=== PATIENT | male | born 1950 | race Caucasian/White ===

== ENCOUNTER 2021-08-01 09:10 | Emergency (ER) | payer MEDICARE, SELFPAY ==
[2021-08-01] VITALS (57 sets, daily range): BP systolic 126–242; BP diastolic 51–197; PULSE 73–124; RESP 14–32; TEMP 36.6; O2SAT 93–100
--- NOTE | ~2021-08-01 | CT_ITS ---
EXAMINATION: CT cervical spine wo con DATE: 08/01/2021 09:48 INDICATION: Fall. TECHNIQUE: Computed tomography (CT) of the cervical spine was performed without intravenous contrast. Automated exposure control and iterative reconstruction technique were employed. Exam dose: 230.65 mGy-cm total exam DLP. COMPARISON: None FINDINGS: There is reversal of cervical curvature which may be due to muscle spasm. C1 and C2 are normally aligned and the odontoid process is intact. No fracture or dislocation or lock ed facet or prevertebral soft tissue swelling. There is degenerative disc disease throughout the cervical spine, most severe at C5-6 and C6-7. Minimal anterolisthesis at C7-T1. Degenerative changes of uncovertebral and apophyseal joints throughout the cervical spine. Emphysematous changes are noted in the upper lung zones. IMPRESSION: Reversal of cervical curvature, which may be due to muscle spasm No cervical spine fracture or dislocation or locked facet Extensive cervical spondylosis Reviewed, dictated and finalized at [facility]. Reviewed, dictated and finalized at [facility].
--- NOTE | ~2021-08-01 | CT_ITS ---
EXAMINATION: CTA brain carotid DATE: 08/01/2021 11:59 INDICATION: Acute confusion. TECHNIQUE: Computed tomography (CT) of the head was performed with 100 CC Omnipaque 300 intravenous c ontrast. The mA was adjusted according to patient size. Iterative reconstruction technique was employ ed. Exam dose: 1065.20 mGy-cm total exam DLP. COMPARISON: 08/01/2021 CT brain FINDINGS: There is atherosclerotic calcification of the thoracic aorta. There is atherosclerotic calcification of the carotid bulbs and proximal internal carotid arteries. N o evidence of dissection or occlusion of the internal carotid arteries. There is atherosclerotic calc ification of the carotid siphons. No cerebral aneurysm or occlusion is evident. Vertebrobasilar arter ies are intact. No cervical mass lesion or lymphadenopathy. Moderate emphysematous changes of the lungs. IMPRESSION: No evidence of occlusion, aneurysm or dissection of the cervical or intracranial carotid or vertebrobasilar arteries There is calcified plaque at the carotid bulbs and proximal internal carotid arteries and carotid sip hon internal carotid arteries bilaterally. Consider carotid duplex examination for assessment of degree of stenosis at the carotid bulbs and int ernal carotid arteries Reviewed, dictated and finalized at [facility]. Reviewed, dictated and finalized at [facility]. IMPRESSION: No evidence of occlusion, aneurysm or dissection of the cervical o r intracranial carotid or vertebrobasilar arteries There is calcified plaque at the carotid bulbs and proximal internal carotid ar teries and carotid siphon internal carotid arteries bilaterally. Consider carotid duplex examination for assessment of degree of stenosis at the carotid bulbs and internal carotid arteries
--- NOTE | ~2021-08-01 | CT_ITS ---
EXAMINATION: CT brain wo con DATE: 08/01/2021 09:48 INDICATION: Altered mental status. Fall. TECHNIQUE: Computed tomography (CT) of the head was performed without intravenous contrast. The mA wa s adjusted according to patient size. Iterative reconstruction technique was employed. Exam dose: 68 1.00 mGy-cm total exam DLP. COMPARISON: None FINDINGS: Prominent bilateral carotid siphon internal carotid artery calcifications, left vertebral a rtery calcification. There is nonspecific diminished attenuation of the cerebral white matter, likely due to chronic small vessel ischemic changes. Age consistent moderate cerebral volume loss. No intracranial mass lesion or hemorrhage or recent cerebrovascular accident is detected. No midline shift or mass effect. No subdural or epidural hematoma. No orbital mass lesion. Paranasal sinuses and mastoid air cells included in the examination are unrem arkable. No fracture or bone destruction of the cranial vault. IMPRESSION: Cerebral atherosclerosis and chronic small vessel ischemic changes of the cerebral white matter No acute intracranial finding Dr. Marino telephoned the report to 08/01/2021 at 0952 hours to emergency room physician Dr. Sexton. Reviewed, dictated and finalized at [facility]. Reviewed, dictated and finalized at [facility]. IMPRESSION: Cerebral atherosclerosis and chronic small vessel ischemic changes of the cerebral white matter No acute intracranial finding Dr. Marino telephoned the report to 08/01/2021 at 0952 hours to emergency room laron Sexton.
--- NOTE | 2021-08-01 09:30 | ECG_ITS ---
Measurements Intervals [place] Rate: 82 P: 87 VT: 185 QRS: -71 QRSD: 131 T: 88 QT: 381 QTc: 446 Interpretive Statements SINUS RHYTHM WITH OCCASIONAL VENTRICULAR PREMATURE COMPLEXES WANDERING BASELINE ARTIFACT LEADS V5 AND V6 LEFT ATRIAL ENLARGEMENT INTRAVENTRICULAR CONDUCTION DELAY [130+ ms QRS DURATION] LEFT VENTRICULAR HYPERTROPHY AND ST-T CHANGE [VOLTAGE CRITERIA PLUS ST/T ABNORMALITY] ANTEROSEPTAL MYOCARDIAL INFARCTION, OF INDETERMINATE AGE ABNORMAL ECG NO PREVIOUS ECG AVAILABLE FOR COMPARISON Electronically Signed On 08-02-2021 9:12:41 CDT by Naveen Garcia M.D.
--- NOTE | 2021-08-01 09:32 | ED.AMS ---
HPI - Altered Mental Status General Chief Complaint: Altered Mental Status <Amrit Sexton MD - Last Filed: 08/01/21 19:06> Stated Complaint: altered mental status <Amrit Sexton MD - Last Filed: 08/01/21 19:06> Time Seen by Provider: 08/01/21 09:13 <Amrit Sexton MD - Last Filed: 08/01/21 19:06> History of Present Illness HPI narrative: 76-year-old male presenting to the emergency department for evaluation after having an episode of altered mental status. Patient was weight when getting to the golf course and other patients felt that the patient was confused. Patient did have a fall with no reported loss of consciousness. EMS arrived to the scene patient was initially confused and noncooperative. No focal neurologic abnormality noted by EMS. Patient's last seen normal was 8 PM last night. <Amrit Sexton MD - Last Filed: 08/01/21 19:06> Related Data Home Medications: Home Medications Medication Instructions Recorded Confirmed aspirin 81 mg capsule 81 mg PO DAILY 08/01/21 08/01/21 atorvastatin 40 mg tablet 40 mg PO HS 08/01/21 08/01/21 glimepiride 4 mg tablet 4 mg PO DAILY 08/01/21 08/01/21 insulin glargine 100 unit/mL 18 unit subcut 08/01/21 subcutaneous cartridge lisinopril 10 mg tablet 20 mg PO DAILY 08/01/21 08/01/21 mometasone-formoterol HFA 200 2 puff inhalation Q12H 08/01/21 08/01/21 mcg-5 mcg/actuation aerosol inhaler (Dulera) <Amrit Sexton MD - Last Filed: 08/01/21 19:06> Allergies/Adverse Reactions: Allergies Allergy/AdvReac Type Severity Reaction Status Date / Time No Known Allergies Allergy Verified 08/01/21 10:11 <Amrit Sexton MD - Last Filed: 08/01/21 19:06> Review of Systems Review of Systems: CONSTITUTIONAL: Denies fever, chills, or sweats. EYES: Denies visual changes, redness, or discharge. ENT: Denies rhinorrhea, congestion, sore throat, or otalgia. CARDIOVASCULAR: Denies chest pain, palpitations, or edema. RESPIRATORY: Denies cough or dyspnea. GASTROINTESTINAL: Denies abdominal pain, nausea, vomiting, or diarrhea. GENITOURINARY: Denies dysuria or hematuria. SKIN: Denies rash or itching. MUSCULOSKELETAL: Denies back pain, joint pain, or myalgia. NEUROLOGIC: Denies headache, numbness, or weakness. PSYCHIATRIC: Altered mental status <Amrit Sexton MD - Last Filed: 08/01/21 19:06> ROS unobtainable: Yes unobtainable due to medical condition <Amrit Sexton MD - Last Filed: 08/01/21 19:06> Exam Narrative: APPEARANCE: Confused HEAD: normocephalic, atraumatic. EYES: PERRLA/EOMI, conjunctivae clear. NOSE: Normal no drainage EARS:TMS clear with good light reflex. THROAT: Pharynx clear, no exudate. NECK: Supple. No adenopathy, no masses. RESPIRATORY: Airway patent, respirations nonlabored. Clear to auscultation bilaterally, no rales, rhonchi, wheezing. CARDIOVASCULAR: Regular rate and rhythm without murmurs rubs or gallops. ABDOMINAL: Soft, nontender, nondistended, normal bowel sounds MUSCULOSKELETAL: Moves all extremities. Strength/ROM intact, No edema, No calf tenderness. NEURO: Alert. Cranial nerves II through XII intact. Good gait. Good coordination. Dysphasia. SKIN: Warm, dry. Normal Color <Amrit Sexton MD - Last Filed: 08/01/21 19:06> Course Course Emergency Course: Patient's last seen normal was 8 PM last night. Case discussed with [facility]y at [facility]. Patient was accepted for transfer but bed is not available. Did recommend further neuro and cardiac work-up. Patient was given his lisinopril along with a dose of metoprolol to help with his blood pressure. This did help significantly. Patient also received aspirin. Patient did have urinary retention and a Fowler catheter was placed. <Amrit Sexton MD - Last Filed: 08/01/21 19:06> Reevaluation(s) Reevaluation #1: Patient continues to have word finding difficulty. Bed is still pending at [facility] <Amrit Sexton MD - Last Filed: 08/01/21 19:0
--- NOTE | 2021-08-01 09:33 | PC.NURSE ---
Patient taken to CT with handbook writer and STEPH Noe for head CT.
--- NOTE | 2021-08-01 09:33 | PC.NURSE ---
71yr, M presented to the ED via EMS from [place] [facility]. Per EMS patient was late to golf, which is unusual for the patient. Bystanders at the [employer] [facility] reported patient wasn't making sense and someone called 911. Patient reported to EMS that he fell this morning. No visible injury identified. Patient arrives confused, alert to self but disoriented to situation, time, and place. Patient blood glucose 118mg/dl for EMS. No last known well for patient identified as no one was with patient prior to him arriving at the [employer] [facility]. Patient is extremely hypertensive upon arrival to the ED. EMS unable to obtain IV access DIGITAL ACCOUNT DIRECTOR.
[2021-08-01] MEDS: hydrALAZINE HCL 20 MG/ML VIAL 10 MG IV PUSH ×3 (09:52→14:05)
[2021-08-01] MEDS: Please add drug allergy info to patient profile. 1 EACH XX (09:52)
[2021-08-01 10:03] LABS: Base Excess ABG 3.7 mEq/l (+/-2.0); Fractional Inspired Oxygen 21 %; HCO3 ABG 27.8 mEq/l (22.0-26.0); Oxygen Content ABG 20.6 %vol (16.0-22.0); Oxygen Saturation ABG 95.8 % (95.0-100.0); Oxyhemoglobin 89.3 % THb (90.0-100.0); PCO2 ABG 40.1 mmHg (35.0-45.0); PO2 ABG 75.7 mmHg (80.0-100.0); Total Hemoglobin 16.4 g/dL (12.0-18.0); pH ABG 7.458 (7.350-7.450)
[2021-08-01 10:04] LABS: Modified Allen's Test Pass; Site Drawn LEFT RADIAL
[2021-08-01 10:14] LABS: Basophils Percent Auto 0.6 % (0.2-1.2); Eosinophils Absolute Auto 0.1 K/mm3 (0-0.3); Eosinophils Percent Auto 1.3 % (0-4.4); Hematocrit 47.6 % (42.0-52.0); Hemoglobin 15.6 g/dL (14.0-18.0); Immature Granulocyte Absolute 0.01 K/mm3 (0.00-0.031); Immature Granulocyte Percent A 0.1 % (0-0.5); Lymphocytes Absolute Auto 0.88 K/mm3 (0.9-3.2); Lymphocytes Percent Auto 12.9 % (18.3-44.2); Mean Corpuscular HGB Conc 32.8 g/dl (32-36); Mean Corpuscular Hemoglobin 29.9 pg (26-34); Mean Corpuscular Volume 91.4 fl (80-100); Monocytes Absolute Auto 0.6 K/mm3 (0.1-0.6); Monocytes Percent Auto 9.1 % (2.6-8.5); Neutrophils Absolute Auto 5.2 K/mm3 (1.3-6.7); Platelet Count Result 190 k/mm3 (150-375); Red Blood Count 5.21 M/mm3 (4.6-6.20); Red Cell Distribution Width 13.2 % (11.5-14.5); White Blood Count 6.8 K/mm3 (4.5-10.0)
--- NOTE | 2021-08-01 10:14 | PC.NURSE ---
Patient remains confused. Patient gives correct answers when asked some questions however most of the time patient's answers are inappropriate responses to questions that are asked. Patient keeps stating, How much longer is this going to take. I need to go play. Patient has trouble with his words at times as well. No unilateral weakness assessed at this time.
[2021-08-01 10:15] LABS: Appearance Urine Clear (Clear); Bilirubin Urine Negative (Negative); Blood Urine 2+ (Negative); Color Urine Yellow (Yellow); Glucose Urine UA Trace mg/dL (Negative); Ketones Urine Negative (Negative); Leukocyte Esterase Ur Negative LEU/UL (Negative); Nitrate Urine Negative (Negative); Protein Urine 3+ mg/dL (Negative); Specific Grav Ur 1.025 (1.001-1.035); Urobilinogen Urine 0.2 mg/dL (<2.0)
[2021-08-01 10:25] LABS: Ammonia < 9 umol/L (9-30); Ethanol < 10 mg/dL (<10); Prothrombin Time 12.5 Seconds (11.1-14.7)
[2021-08-01 10:26] LABS: Partial Thromboplastin Time 34.1 SECONDS (22.3-36.8)
[2021-08-01 10:30] LABS: Barbiturate Screen Urine Negative (Negative); Benzodiazepines Screen Urine Negative (Negative)
[2021-08-01 10:31] LABS: WBC Urine 0-3 /hpf
[2021-08-01 10:32] LABS: Add Urine Microscopic? YES
--- NOTE | 2021-08-01 10:44 | PC.NURSE ---
Chief Unit Forester staying at patient's bedside because patient continuously tries to get up. Patient keeps stating I want to go home. I feel fine.
[2021-08-01 10:45] LABS: Glucose Point of Care 110 mg/dl (65-105)
[2021-08-01 10:52] LABS: SARS-CoV-2 RNA PCR Negative
[2021-08-01 11:06] LABS: Alanine Aminotransferase 21 U/L (6-50); Albumin Level 4.5 g/dL (3.5-5.1); Alkaline Phosphatase 135 U/L (38-126); Anion Gap 6 mmol/L (8-16); Aspartate Amino Transferase 33 U/L (17-59); Bilirubin,Total 0.6 mg/dL (0.2-1.3); Blood Urea Nitrogen 13 mg/dL (9-20); Calcium 9.4 mg/dL (8.4-10.2); Carbon Dioxide 28 mmol/L (22-30); Chloride 102 mmol/L (98-107); Estimated Glomerular Filt Rate > 60; Glucose 111 mg/dL (65-110); Potassium 3.9 mmol/L (3.4-5.0); Sodium 136 mmol/L (137-145)
--- NOTE | 2021-08-01 11:12 | PC.NURSE ---
ED home theatre technician at bedside to reorient patient to surroundings and keep patient safe from falling.
[2021-08-01 11:13] LABS: Cocaine Screen Urine Negative (Negative)
--- NOTE | 2021-08-01 11:33 | PC.NURSE ---
Assistant Federal Public Defender called the [facility] where patient was picked up by EMS. Assistant Federal Public Defender spoke with Pio Dozier. Leonie informed policy writer sales that she saw Davi around 2030 last night (07/31/21), she reports he was his normal self at that time. She then stated Davi showed up today around 0835 which is unusual because he is always there by 0830. She reported he walked by her and didn't say anything, she reports she said hi to him and he didn't respond like he was ignoring her. Shortly after that other people were talking to him and he wasn't making sense at that time but did tell them that he fell this morning. Leonie also reported patient had a TIA 3 weeks ago and was [facility] at that time. Assistant Federal Public Defender also tried to contact patient's old roommate, Ryanne for more information but unable to get ahold of Ryanne at [phone]. Assistant Federal Public Defender made Dr. Sexton aware of the information that was given.
--- NOTE | 2021-08-01 12:08 | PC.NURSE ---
Patient got up out of bed to urinate. Patient urinated in the urinal but was also soiled with urine. Patient then sat on the bed, ED technicians were attempting to change patient's gown and remove his wet underwear but patient started dry heaving and spit up some mucous. Custodial Officer asked Dr. Sexton for Zofran, verbal order for Zofran given.
[2021-08-01] MEDS: ONDANSETRON INJ 4 MG/2 ML VIAL IV PUSH (12:13)
[2021-08-01 12:34] LABS: Amphetamine Screen Urine Negative (Negative); Cannabinoid Screen Urine Negative (Negative); Methadone Screen Urine Negative (Negative); Opiate Screen Urine Negative (Negative); Phencyclidine Screen Urine Negative (Negative)
[2021-08-01] MEDS: lisinopriL 20 MG TABLET PO (13:16)
[2021-08-01] MEDS: METOPROLOL SUCCINATE EXT REL 25 MG TABCR PO (13:16)
[2021-08-01] MEDS: ASPIRIN 81 MG CHEWABLE TABLET 324 MG PO (13:18)
[2021-08-01] MEDS: SODIUM CHLORIDE 0.9% IV 1,000 ML 500 ML IV CONT (14:05)
--- NOTE | 2021-08-01 16:00 | PC.NURSE ---
Pt continues to remain confuse at times, able to answer some questions right, has trouble with his words at times as well. Patient keeps stating, How much longer is this going to take. I need to go play. Patient keeps getting up stating I need to go pee , but not able to urinate much, just a few drops. Tech at bedside to prevent any falls.
--- NOTE | 2021-08-01 18:25 | PC.NURSE ---
status on bed at [facility] no bed at current time-earliest maybe tomorrow 08/02/21
--- NOTE | 2021-08-01 19:15 | PC.NURSE ---
Report received from STEPH Koch. This nurse assumed care of patient at this time.
--- NOTE | 2021-08-01 20:19 | PC.NURSE ---
Patient attempted to get out of bed and pulled at the milner catheter. Patient redirected and reoriented, patient still confused. Patient assisted back into bed, sitter remains at bedside. Bed alarm under patient.
[2021-08-01] MEDS: LORazepam INJ (*CRX) 2 MG/ML VIAL 1 MG IV PUSH (20:55)
[2021-08-02] VITALS (44 sets, daily range): BP systolic 140–182; BP diastolic 47–100; PULSE 62–92; RESP 18–28; TEMP 36.7; O2SAT 90–98
--- NOTE | 2021-08-02 01:34 | PC.NURSE ---
Patient O2 noted to dip to 89% on RA when sleeping, patient placed on 1L via NC and O2 increased to 98%.
--- NOTE | 2021-08-02 05:14 | PC.NURSE ---
called [facility] transfer center to check on bed availability. [facility] still at capacity.
--- NOTE | 2021-08-02 05:40 | PC.NURSE ---
Passed swallow eval. by PETRA Sexton. Diet order placed by this RN.
[2021-08-02 05:45] LABS: Glucose Point of Care 72 mg/dl (65-105)
--- NOTE | 2021-08-02 07:09 | PC.NURSE ---
Called for breakfast tray.
[2021-08-02] MEDS: ASPIRIN 81 MG CHEWABLE TABLET PO (07:50)
[2021-08-02] MEDS: CLOPIDOGREL BISULFATE 75 MG TABLET PO (09:50)
== END 2021-08-02 10:15 | disposition home or self-care (01) ==
PROVIDERS: Emergency Medicine; Emergency Provider Emergency Medicine
DX: I63.9 Cerebral infarction, unspecified (principal); R47.02 Dysphasia; R29.703 NIHSS score 3; Z20.822 Contact with and (suspected) exposure to COVID-19; Z79.82 Long term (current) use of aspirin; Z79.4 Long term (current) use of insulin; Z79.84 Long term (current) use of oral hypoglycemic drugs; I49.3 Ventricular premature depolarization; I45.9 Conduction disorder, unspecified; I51.7 Cardiomegaly; R94.31 Abnormal electrocardiogram [ECG] [EKG]; M47.812 Spondylosis without myelopathy or radiculopathy, cervical region; I67.2 Cerebral atherosclerosis
CPT/HCPCS: 36415; 36600; 51701; 70450; 70496; 70498; 72125; 80053; 80307; 81001; 82140; 82805; 82948; 83605; 85025; 85610; 85730; 93005; 99284; A9270; C9803; J0360; J2060; J2405; J7030; Q9967; U0003; U0005